=== PATIENT | male | born 2005 | race Caucasian/White ===

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

== ENCOUNTER 2023-11-02 22:29 | Emergency (ER) | payer SELFPAY ==
[~2023-11-02] VITALS: Ht 175.3 cm; Wt 63.5 kg
[2023-11-02 23:05] VITALS: TEMP 98.4; O2SAT 99
[2023-11-02] MEDS ORDERED: OFLO5DRO4 RIGHT EAR (23:31)
[2023-11-02 23:37] VITALS: BP 157/90; PULSE 78; RESP 18
[2023-11-02] MEDS: ACETAMINOPHEN 325MG TABLET PO ONE (23:46)
== END 2023-11-02 23:46 | disposition home or self-care (01) ==
LOC: ER 22:29
DX: H60.91 Unspecified otitis externa, right ear (principal)
CPT/HCPCS: 99282